=== PATIENT | female | born 1965 | race Caucasian/White ===

== ENCOUNTER 2017-12-16 11:00 | Outpatient (RCR) | payer BC, SELFPAY ==
--- NOTE | 2017-11-19 07:49 | PTTR_ITS ---
DATE: 11/19/17 SUBJECTIVE: Pt reports that she was trying to take her lock off at work and she had the first twinge that she has had in a while and it was sharp discomfort and her shoulder and she has been fine since. She does feel that she is making progressions. OBJECTIVE: Manual therapy: ([id number]). Pt received scapular jiggling, light AP glides. Pt also received AAROM into all planes into extended holding into all planes. Pt also completed PNFs D1, D2 with AAROM. I did utilize traction which seemed to help alleviate some of the discomfort. Direct treatment time: 30 minutes Total treatment time: 30 minutes
--- NOTE | 2017-11-24 14:52 | PTTR_ITS ---
DATE: 11/24/17 SUBJECTIVE: Pt states that she is feeling ok and has a little bit of a turn of the sharp pain that she was feeling before. OBJECTIVE: Manual therapy: ([id number]). Pt placed in the supine position receiving oscillatory lateral distraction as well as scapular jiggles to decrease muscle tension. She is stretched lightly through the pectorals and biceps with low load long duration holds and abduction techniques applied to 100* with use of posterior lateral glide to the humeral head. At 70* of abduction pt is mobilized to about 75-80 of ER and 45-50* of IR. AA technique is applied with use of a thera band with motion assessed at 90* of abduction. She is able to achieve AA range of 65-70* of ER and roughly 50* of IR. Overhead shoulder flexion utilizing glenohumeral approximation technique is to 140*. In the prone position we work AA shoulder flexion utilizing a thera band and has a AA promotion for movement. She also completes this in the standing position. Pt tolerates tx well. Direct treatment time: 30 minutes Total treatment time: 30 minutes
--- NOTE | 2017-12-02 16:50 | PTTR_ITS ---
DATE: 12/02/17 SUBJECTIVE: I am doing okay for the most part. OBJECTIVE: Manual therapy: ([id number]): Patient was placed in supine and mobilized with oscillatory lateral distraction and scapular jiggles to decrease muscle tension. She was then stretched through the pectorals and biceps with low load long duration holds. In the plane of abduction she is mobilized through 90 degrees with a posterior lateral glide of the humeral head. She is mobilized through the plane of external rotation to 80 degrees and internal rotation to 50 degrees. Patient then guided through flexion to just shy of 150 degrees with use of glenohumeral approximation to relieving traction. Patient in sidelying receiving gentle mobilization through the posterior cuff for desensitization. Direct treatment time: 30 min of direct patient care.
--- NOTE | 2017-12-06 09:50 | PTTR_ITS ---
DATE: 12/06/17 SUBJECTIVE: I am doing pretty well for the most part. My arm has not been as sore this time through. OBJECTIVE: Manual therapy: ([id number]): Patient was placed in supine and mobilized with gentle oscillatory lateral distraction and scapular jiggles through the shoulder girdle to decrease muscle tension. Patient then stretched lightly through the pectorals and biceps with low load long duration holds. In the plane of abduction patient was mobilized to 95 degrees with the use of a posterior lateral glide through the humeral head. While in 90 degrees of modified scaption patient was mobilized to 80 degrees of external rotation and 50 degrees of internal rotation. Her overhead flexion was mobilized with the use of glenohumeral approximation to relieving traction. Patient then placed in sidelying with use of gentle shoulder extension to end range and mobilization through the posterior cuff. Direct treatment time: 30 minutes of direct patient care.
--- NOTE | 2017-12-10 11:13 | PTTR_ITS ---
DATE: 12/10/17 SUBJECTIVE: Pt states that she feels like she is getting a little bit better.She is still a little bit decreased in her ability to get dressed, particularly with donning and doffing her bra. OBJECTIVE: Manual therapy: ([id number]).Pt placed in the supine position receiving gentle oscillatory lateral distraction, as well as scapular jiggles to decrease muscle tension. Pt then mobilized with a stretch at the pectorals and biceps with low load long duration holds. She is mobilized with abduction mobilization to 100 degrees utilizing a posterolateral glide of the humeral head. She is then rotated to ER utilizing GH rolling assist via posterolateral glide and scapular positioning and she achieves about 85 degrees of ER. With scapular unlocking, she is able to IR to about 70 degrees with scapular blocking and she is still limited at about 45 degrees. Overhead flexion passively to 155 degrees, actively still limited at about 135-140. Pt mobilized in the side lying position with STM through the musculotendinous junction of the RC external rotators through the muscle belly of the teres major, teres minor and infraspinatus and shoulder extension to end range with good tolerance. Pt tolerated treatment well. Direct treatment time: 30 min Total treatment time: 30 min LETTY/hans
--- NOTE | 2017-12-14 12:02 | PTTR_ITS ---
DATE: 12/13/17 SUBJECTIVE: Pt states that she is doing ok and she did see her doctor who stated that she should continue staying on course with her PT tx. OBJECTIVE: Manual therapy: ([id number]). Pt placed in the supine position receiving oscillatory lateral distraction as well as scapular jiggles to reduce muscle tension and mobilize the posterior lateral glide of the humeral head. Stretched through the pectorals and biceps with low load long duration holds and then mobilized through end range shoulder flexion utilizing glenohumeral distraction to end range traction. Also stretched through ER to 90*, IR to 70* with scapula free and 45* with scapular block. She tolerates tx well. Direct treatment time: 30 minutes Total treatment time: 30 minutes
--- NOTE | 2017-12-16 08:03 | PTTR_ITS ---
DATE: 12/16/17 SUBJECTIVE: Pt states that she is doing ok. She is spending some time at the [facility] trying to get her horse ready for show. OBJECTIVE: Manual therapy: ([id number]).Pt placed in the supine position receiving gentle oscillatory lateral distraction, as well as scapular jiggles to decrease muscle tension. She is mobilized with stretching through the pectorals and biceps with low load long duration holds before mobilized in the abduction plane with use of a posterolateral glide of the humeral head. She is then placed in 90 degrees of abduction with ER mobilized within in a posterolateral glide of the humeral head to about 85-90 degrees and IR with the scapula on lock pt able to achieve 70 degrees with scapular blocking she is limited to 45 degrees. Overhead flexion at about 155 degrees with good tolerance to about 150, but as approaching 155 pt becomes significantly more uncomfortable. She is then placed in side lying receiving gentle shoulder extension to end range and a mobilization via soft tissue to the posterior cuff. She tolerates treatment well. Direct treatment time: 30 min Total treatment time: 30 min LETTY/hans
== END 2017-12-17 23:59 | disposition home or self-care (01) ==
LOC: PT 11:00
PROVIDERS: Referring Provider Physician Assistant; Visit Provider Physician Assistant
DX: M65.812 Other synovitis and tenosynovitis, left shoulder (principal); M75.02 Adhesive capsulitis of left shoulder
CPT/HCPCS: 97140

== ENCOUNTER 2020-11-19 07:30 | Day surgery (SDC) | payer BC, SELFPAY ==
[2020-11-19 07:30] VITALS: BP 132/74; PULSE 78; RESP 18; TEMP 36.2; O2SAT 100
--- NOTE | 2020-11-19 07:33 | W.PM.DSUDISC ---
Discharge Plan Disposition Patient Disposition: HOME Condition: Good Discharge Details Reason For Visit: Right Trigger Thumb Attending Provider: Tremaine Burnett Primary Care Provider: Arden Matthews Home Meds and New Rx's Prescriptions: New acetaminophen 500 mg tablet 1,000 mg PO Q8H PRN (Reason: pain) Qty: 90 RF: 3 ibuprofen 600 mg tablet 600 mg PO TID PRN (Reason: pain) Qty: 90 RF: 3 Continued metformin 500 mg tablet 500 mg PO DAILY Qty: 60 RF: 0 losartan 50 mg tablet 50 mg PO DAILY Qty: 90 RF: 4 metoprolol succinate 50 mg tablet extended release 24 hr 50 mg PO DAILY Qty: 90 RF: 4 (DME) OneTouch Ultra Test 1 EACH strip 1 strip Miscellaneous DAILY RF: 0 ascorbic acid (vitamin C) [Vitamin C] 500 MG tablet 1 tab PO DAILY RF: 0 vitamin B complex [B-Complex] 1 EACH tablet 1 tab PO DAILY RF: 0 omega-3 fatty acids-fish oil 1 EACH capsule 1 cap PO BID RF: 0 aspirin [Aspir-Low] 81 MG tablet,delayed release (DR/EC) 1 tab PO DAILY RF: 0 triamcinolone acetonide 15 GM cream 1 macey Topical DAILY Qty: 3 RF: 4 glipizide 5 mg tablet extended release 24hr 5 mg PO DAILY Qty: 90 RF: 3 Jardiance 10 mg tablet 10 mg PO DAILY Qty: 90 RF: 3 loratadine [Claritin] 10 MG tablet 10 mg PO PRN PRNRF: 0 Discharge Instructions Stand Alone Forms: Hortencia Bermudez Finger Release Referrals: Tremaine Burnett MD [ [facility] STAFF PHYSICIAN] - Activity:: Elevate Remove Dressings/Wound Care:: 48 hours Shower/Bathe:: 48 hours Diet:: As Tolerated Discharge Orders Discharge Orders: Discharge Order (Routine); Ordered 11/19/20 Ordered By: Tremaine Burnett
[2020-11-19] MEDS: Sodium Bicarbonate 50 MEQ/50 ML VIAL (08:47)
--- NOTE | 2020-11-19 09:33 | ROE_ITS ---
Date of service: 11/19/20 Time of Service: 09:01 Operative Note Operative Note DATE OF PROCEDURE: 11/19/20 PRE-OP DIAGNOSIS: Right Thumb Trigger Finger POST-OP DIAGNOSIS: same PROCEDURE: Trigger Finger Release - Right Thumb SURGEON: Tremaine Burnett ANESTHESIA TYPE: Local By Surgeon Refer to Anesthesia Record ESTIMATED BLOOD LOSS: 0 PATHOLOGY: none sent TOURNIQUET TIME: 0 COMPLICATIONS: None Patient was transported to: same day Patient's condition: stable Indications: I have seen Grisel in clinic for symptoms of a trigger finger of the right thumb. The restricted motion and pain limited function. The diagnosis of trigger finger was evident. The symptoms had not responded to conservative measures. I discussed trigger finger release with the patient. I reviewed the risks of the procedure to include, but not limited to, bleeding, infection, pain, stiffness, incomplete release, damage to nerves or vessels, continued catching, recurrence. Despite these risks, the patient elected to proceed. Findings: There was a tightened A1 eddie which was released. The flexor tendons were inspected and the patient was able to move the finger without any catching, clicking, or locking. Motion was noted to be improved and normal per patient. Procedure Description: Grisel was greeted in the preoperative holding area where the correct side was identified and marked. The consent was reviewed with the patient and signed. All questions were answered. rGisel was taken back to the operating room. The patient was placed into the supine position on the operating room table with the right arm on an arm board. All bony prominences were well padded. No prophylactic antibiotics were administered since this was a clean, elective hand surgical case. The right arm was then prepped with Chloraprep and draped in a standard fashion with stockinette and extremity drape. A timeout to confirm correct identity, side and site, procedure, allergies, anesthesia, and medical concerns was performed. The surgical site was marked as a longitudinal incision directly over the A1 eddie of the involved digit. This was confirmed with palpation during finger flexion. This area, overlying the metacarpal head, was then anesthetized with 1% Lidocaine. The patient tolerated this well and once the anesthetic had setup, the procedure began. A longitudinal incision was made through skin only, approximately 1cm. The deep tissues were dissected bluntly. Once the A1 eddie and flexor tendons were identified the soft tissue including neurovascular structures were retracted medially and laterally. There were no crossing struct ures over the A1 eddie. The proximal edge of the eddie was identified and the eddie was incised with tenotomy scissors. There was a release of the tendons once this was fully released. The tendons were then removed from the wound and inspected. Excess synovium was resected. The tendons were then returned and the patient was asked to move the finger into deep flexion and back to extension. There was no recreation of the pre-operative symptoms. The hand was then once more inspected for any A0 eddie or area of possible constriction. The wound was then irrigated and the skin was closed with a 4-0 Nylon. This was dressed with gauze and a Conform dressing. The patient tolerated the procedure well and was returned to the Same Day Surgery area in a stable condition suffering no known complication.
== END 2020-11-19 09:20 | disposition home or self-care (01) ==
PROVIDERS: PCP Nurse Practitioner Family; Visit Provider Student in an Organized Health Care Education/Training Program
PROC: (CPT 26055; principal; 2020-11-19 09:45)
DX: M65.311 Trigger thumb, right thumb (principal)
CPT/HCPCS: 26055

== ENCOUNTER 2020-11-26 06:20 | Day surgery (SDC) | payer BC, SELFPAY ==
[2020-11-26 06:41] VITALS: BP 121/72; PULSE 83; RESP 18; TEMP 36.3; O2SAT 98
--- NOTE | 2020-11-26 07:21 | W.PM.DSUDISC ---
Discharge Plan Disposition Patient Disposition: HOME Condition: Good Discharge Details Reason For Visit: Left ring finger trigger Attending Provider: Tremaine Burnett Primary Care Provider: Arden Matthews Home Meds and New Rx's Prescriptions: Continued losartan 50 mg tablet 50 mg PO DAILY Qty: 90 RF: 4 metoprolol succinate 50 mg tablet extended release 24 hr 50 mg PO DAILY Qty: 90 RF: 4 (DME) OneTouch Ultra Test 1 EACH strip 1 strip Miscellaneous DAILY RF: 0 ascorbic acid (vitamin C) [Vitamin C] 500 MG tablet 1 tab PO DAILY RF: 0 vitamin B complex [B-Complex] 1 EACH tablet 1 tab PO DAILY RF: 0 omega-3 fatty acids-fish oil 1 EACH capsule 1 cap PO BID RF: 0 aspirin [Aspir-Low] 81 MG tablet,delayed release (DR/EC) 1 tab PO DAILY RF: 0 triamcinolone acetonide 15 GM cream 1 macey Topical DAILY Qty: 3 RF: 4 glipizide 5 mg tablet extended release 24hr 5 mg PO DAILY Qty: 90 RF: 3 Jardiance 10 mg tablet 10 mg PO DAILY Qty: 90 RF: 3 metformin 500 mg tablet extended release 24 hr 500 mg PO BID Qty: 180 RF: 4 loratadine [Claritin] 10 MG tablet 10 mg PO PRN PRNRF: 0 acetaminophen 500 mg tablet 1,000 mg PO Q8H PRN (Reason: pain) Qty: 90 RF: 3 ibuprofen 600 mg tablet 600 mg PO TID PRN (Reason: pain) Qty: 90 RF: 3 Discharge Instructions Stand Alone Forms: Hortencia Bermudez Finger Release Referrals: Tremaine Burnett MD [ [facility] STAFF PHYSICIAN] - Activity:: Elevate Remove Dressings/Wound Care:: 48 hours Shower/Bathe:: 48 hours Diet:: As Tolerated Discharge Orders Discharge Orders: Discharge Order (Routine); Ordered 11/26/20 Ordered By: Lizette Marino DS: Diagnosis Discharge Diagnosis (1) Trigger finger, left ring finger: Status: Acute
[2020-11-26] MEDS: Sodium Bicarbonate 50 MEQ/50 ML VIAL (07:37)
--- NOTE | 2020-11-26 14:14 | ROE_ITS ---
Date of service: 11/26/20 Time of Service: 07:49 Operative Note Operative Note DATE OF PROCEDURE: 11/26/20 PRE-OP DIAGNOSIS: Left Ring Trigger Finger POST-OP DIAGNOSIS: same PROCEDURE: Trigger Finger Release - Left Ring Finger SURGEON: Tremaine Burnett ANESTHESIA TYPE: Local By Surgeon Refer to Anesthesia Record ESTIMATED BLOOD LOSS: 0 PATHOLOGY: none sent COMPLICATIONS: None Patient was transported to: same day Patient's condition: stable Indications: I have seen Grisel in clinic for symptoms of a trigger finger. The catching, clicking, locking, and pain limited function. The diagnosis of trigger finger was evident. The symptoms had not responded to conservative measures. I discussed trigger finger release with the patient. I reviewed the risks of the procedure to include, but not limited to, bleeding, infection, pain, stiffness, incomplete release, damage to nerves or vessels, continued catching, recurrence. Despite these risks, the patient elected to proceed. Findings: There was a tightened A1 eddie which was released. The flexor tendons were inspected and the patient was able to move the finger without any catching, clicking, or locking. Procedure Description: Grisel was greeted in the preoperative holding area where the correct side was identified and marked. The consent was reviewed with the patient and signed. All questions were answered. Grisel was taken back to the operating room. The patient was placed into the supine position on the operating room table with the left arm on an arm board. All bony prominences were well padded. No prophylactic antibiotics were administered since this was a clean, elective hand surgical case. The left arm was then prepped with Chloraprep and draped in a standard fashion with stockinette and extremity drape. A timeout to confirm correct identity, side and site, procedure, allergies, anesthesia, and medical concerns was performed. The surgical site was marked as a longitudinal incision directly over the A1 eddie of the involved digit. This was confirmed with palpation during finger flexion. This area, overlying the metacarpal head, was then anesthetized with 1% Lidocaine. The patient tolerated this well and once the anesthetic had setup, the procedure began. A longitudinal incision was made through skin only, approximately 1cm. The deep tissues were dissected bluntly. Once the A1 eddie and flexor tendons were identified the soft tissue including neurovascular structures were retracted medially and laterally. There were no crossing structures over the A1 eddie. The proximal edge of the eddie was identified and the eddie was incised with tenotomy scissors. There was a release of the tendons once this was fully released. The tendons were then removed from the wound and inspected. Excess synovium was resected. The tendons were then re turned and the patient was asked to move the finger into deep flexion and back to extension. There was no recreation of the pre-operative symptoms. The hand was then once more inspected for any A0 eddie or area of possible constriction. The wound was then irrigated and the skin was closed with a 4-0 Nylon. This was dressed with gauze and a Conform dressing. The patient tolerated the procedure well and was returned to the Same Day Surgery area in a stable condition suffering no known complication.
== END 2020-11-26 08:05 | disposition home or self-care (01) ==
PROVIDERS: PCP Nurse Practitioner Family; Visit Provider Student in an Organized Health Care Education/Training Program
PROC: (CPT 26055; principal; 2020-11-26 07:30)
DX: M65.342 Trigger finger, left ring finger (principal)
CPT/HCPCS: 26055

== ENCOUNTER 2021-09-01 03:22 | Outpatient (CLI) | payer BC, SELFPAY ==
[2021-09-01 08:43] LABS: ALT 34 U/L (14-59); AST 22 U/L (15-37); Albumin 4.4 g/dL (3.4-5.0); Alkaline Phosphatase 81 U/L (46-116); Anion Gap 10.5 mmol/L (3-11); BUN 12 mg/dL (7-18); CO2 28.5 mmol/L (21.0-32.0); CREATININE 0.9 mg/dL (0.55-1.02); Calculated LDL 128 mg/dL (<100); Chloride 103 mmol/L (98-107); Cholesterol 193 mg/dL (<200); Glucose 203 mg/dL (74-106); HDL Cholesterol 39 mg/dL (40-60); Sodium 142 mmol/L (136-145); Total Protein 6.7 g/dL (6.4-8.2); Triglyceride 132 mg/dL (<150)
[2021-09-01 08:57] LABS: Bilirubin, Total 0.9 mg/dL (0.2-1.0)
== END 2021-09-01 03:23 | disposition home or self-care (01) ==
LOC: LBO 03:22
PROVIDERS: PCP Nurse Practitioner Family; Visit Provider Nurse Practitioner Family
DX: E78.2 Mixed hyperlipidemia (principal); I10 Essential (primary) hypertension
CPT/HCPCS: 36415; 80053; 80061

== ENCOUNTER 2023-07-05 13:50 | Outpatient (REF) | payer BC, SELFPAY ==
--- NOTE | 2023-07-05 13:45 | PAPFT_PTH ---
PATIENT: Grisel Damico LOC: [facility] U#:[id number] AGE/SX: 58/F ROOM: RE07/05/[address]: Arden Matthews NP : 1965 BED: DIS: 07/05/2023 SPEC #: [id number] RECD: 07/06/23 12:50 STATUS: NIKKI REGavin #: [id number] MINNIE: 07/05/23 13:[address]: Arden Matthews DEPT: PENDING SALE TO [facility] Cytology RECD BY: Keila Villegas Tissues: 1 - CX/ENDOCX FOR PAP SMEARS Procedures: PAP THIN PREP/UVM Screening HPV DNA PROBE Comments: [id number]
== END 2023-07-05 13:51 | disposition home or self-care (01) ==
LOC: LBN 13:50
PROVIDERS: PCP Nurse Practitioner Family; Visit Provider Nurse Practitioner Family
DX: Z12.4 Encounter for screening for malignant neoplasm of cervix (principal); Z11.51 Encounter for screening for human papillomavirus (HPV)
CPT/HCPCS: 88142; 87624

== ENCOUNTER 2023-10-27 02:20 | Outpatient (CLI) | payer BC, SELFPAY ==
[2023-10-27 08:47] LABS: CREATININE 0.9 mg/dL (0.55-1.02); Calculated LDL 105 mg/dL (<100); Cholesterol 164 mg/dL (<200); Estimated GFR 74.57 (mL/min/1.73m2); HDL Cholesterol 36 mg/dL (40-60); Potassium 3.9 mmol/L (3.5-5.1); Triglyceride 119 mg/dL (<150)
== END 2023-10-27 02:21 | disposition home or self-care (01) ==
LOC: LBO 02:21
PROVIDERS: PCP Nurse Practitioner Family; Visit Provider Nurse Practitioner Family
DX: I10 Essential (primary) hypertension (principal); E78.2 Mixed hyperlipidemia
CPT/HCPCS: 36415; 80061; 82565; 84132

== ENCOUNTER 2024-05-08 03:12 | Outpatient (CLI) | payer BC, SELFPAY ==
[2024-05-08 14:27] LABS: ALT 28 U/L (14-59); AST 29 U/L (15-37); Albumin 4.7 g/dL (3.4-5.0); Alkaline Phosphatase 78 U/L (46-116); Anion Gap 7.8 mmol/L (3-11); BUN 14 mg/dL (7-18); Bilirubin, Total 0.81 mg/dL (0.2-1.0); CO2 30.2 mmol/L (21.0-32.0); Calcium 10.3 mg/dL (8.5-10.1); Chloride 104 mmol/L (98-107); Glucose 107 mg/dL (74-106); Potassium 4.7 mmol/L (3.5-5.1); Sodium 142 mmol/L (136-145); Total Protein 7.6 g/dL (6.4-8.2)
== END 2024-05-08 03:13 | disposition home or self-care (01) ==
LOC: LBO 03:12
PROVIDERS: PCP Nurse Practitioner Family; Visit Provider Nurse Practitioner Family
DX: R63.4 Abnormal weight loss (principal)
CPT/HCPCS: 36415; 80053

== ENCOUNTER 2024-07-07 16:17 | Outpatient (REF) | payer BC, SELFPAY ==
[2024-07-07 22:04] LABS: COMMENT (LAB VIEW ONLY) 50.56 mg/dL; Microalb ug/mg Crea 25.5 ug/mg Cr
== END 2024-07-07 16:18 | disposition home or self-care (01) ==
LOC: LBN 16:17
PROVIDERS: PCP Nurse Practitioner Family; Visit Provider Nurse Practitioner Family
DX: E11.9 Type 2 diabetes mellitus without complications (principal); I10 Essential (primary) hypertension; Z00.00 Encounter for general adult medical examination without abnormal findings
CPT/HCPCS: 82043; 82570